=== PATIENT | female | born 1970 | race Caucasian/White ===

== ENCOUNTER 2016-11-30 18:12 | Observation (INO) ==
[2016-11-30] MEDS ORDERED: *HR* HYDROmorphone (PF) 1 MG/ML SYRINGE IVP ONE ×2 (19:08→20:30)
[2016-11-30] MEDS ORDERED: Ondansetron 4 MG/2 ML VIAL IVP ONE ×2 (19:08→20:30)
--- NOTE | 2016-11-30 19:11 | Emergency Department Note ---
Disposition Clinical Impression: Ureterolithiasis Disposition: Admitted As Inpatient Condition: Good Referrals: NO,PCP [Primary Care Provider] - Forms: Work/School Release, ED Satisfaction Letter Time of Disposition: 20:32 Abdominal Pain HPI - General Chief Complaint: ED Abdominal Pain Stated Complaint: flank pain Time Seen by Provider: 11/30/16 19:06 Source: patient Mode of arrival: ambulatory Limitations: no limitations Nursing Notes Reviewed: Yes Vital Signs Reviewed: Yes - History of Present Illness HPI Narrative: 46-year-old comes in with 24-hour history of left flank pain radiating around to her abdomen. Patient has had a kidney stone passes it feels similar to that. Pt Subjective Complaint: abdominal pain, flank pain Onset (ago): hour(s) Consistency: constant (24) Location: LLQ, L flank Pain Severity: severe Pain Scale: 10 Quality: stabbing, aching Radiation: LLQ Migration to: no migration Improves with: nothing Worsens with: nothing - Related Data Previous Rx's Medication Instructions Recorded Azithromycin [Azithromycin 6-Tab 250 mg PO PER PKG DI #6 tab 05/07/16 Pack] GuaiFENesin/Dextromethorphan [Kro 5 ml PO Q4-6H PRN #118 ml 05/07/16 Tussin Dm Max Liquid] Allergies Allergy/AdvReac Type Severity Reaction Status Date / Time No Known Allergies Allergy Verified 11/30/16 19:05 All systems ED: reviewed and negative except as stated. Constitutional: Denies: fever, chills, weakness, weight change Eyes: Denies: eye pain, eye discharge, vision change ENT ED: Denies: ear pain, throat pain, dental pain, hearing loss, epistaxis, congestion, dysphagia Cardiovascular: Denies: chest pain, palpitations, dyspnea on exertion, edema, syncope Respiratory: Denies: cough, dyspnea, wheezes, hemoptysis, stridor Gastrointestinal: Reports: abdominal pain. Denies: nausea, vomiting, diarrhea, constipation, hematemesis, melena, hematochezia Genitourinary: Denies: dysuria, frequency, hematuria, discharge Musculoskeletal: Reports: back pain. Denies: neck pain, arthralgia, myalgia Integumentary: Denies: rash, abrasion, lesions Neurological: Denies: headache, weakness, numbness, paresthesias, confusion, abnormal gait, vertigo Psychiatric: Denies: anxiety, depression, suicidal thoughts, homicidal thoughts , auditory hallucinations, visual hallucinations Endocrine: Denies: fatigue Hematological/Lymphatic: Denies: easy bleeding, easy bruising Allergic/Immunologic: Denies: facial swelling, urticaria Abdominal Pain PMH - Past Medical History Medical history: Reports: kidney stones Female Surgical History: Reports: other Psychiatric history: Reports: no psych history - Social History Smoking status: Never smoker Alcohol use: Reports: none Drug use: Reports: none Physical Exam - General Limitations: no limitations General appearance: alert, in no apparent distress - Head Head exam: atraumatic, normocephalic, normal inspection - Eye Eye exam: Present: normal appearance, PERRL, EOMI - ENT ENT exam: normal exam, normal oropharynx, mucous membranes moist - Neck Neck exam: Present: normal inspection, full ROM, trachea midline - Chest Chest inspection: Present: normal inspection, symmetric chest wall rise - Respiratory Respiratory exam: Present: normal lung sounds bilaterally - Cardiovascular Cardiovascular exam: Present: regular rate, normal rhythm, normal heart sounds - Abdominal Exam Abdominal exam: Present: soft, Non-Tender. Absent: tenderness, distention, guarding, rebound, rigidity - Extremities Exam Extremities exam: Present: normal inspection, full ROM. Absent: tenderness, pedal edema - Expanded Lower Extremity Exam Neurovascular/Tendon exam: Absent: motor deficit, sensory deficit, tendon deficit - Back Exam Back exam: Present: normal inspection, full ROM. Absent: tenderness - Neurological Exam Neurological exam: Present: alert, oriented X3 - Psychiatric Psychiatric exam: Present: normal affect, normal mood - Skin Skin exam: Present: warm, dry, intact, normal color Course - Reevaluation(s) Reevaluation #1: 46-year-old female with history of previous kidney stones comes in complaining of flank pain. CT shows a 9 mm stone will admit. Time: 20:32 - Consultations Consultation #1: Discussed with Dr. Sterling who will accept the patient for admission Time: 20:31 Vital Signs Temperature 99.0 F 11/30/16 19:02 Pulse Rate 85 11/30/16 19:02 Respiratory Rate 20 11/30/16 19:02 Blood Pressure 189/129 11/30/16 19:02 O2 Sat by Pulse Oximetry 96 11/30/16 19:02 Temperature 99.0 F 11/30/16 19:02 Pulse Rate 77 11/30/16 19:55 Respiratory Rate 16 11/30/16 19:55 Blood Pressure 131/79 11/30/16 19:55 O2 Sat by Pulse Oximetry 97 11/30/16 19:55 Oxygen Delivery Oxygen Delivery Room Air Abdominal Pain - Lab Data Lab results reviewed: Yes I reviewed the patient's lab results. Result diagrams: 11/30/16 19:13 11/30/16 19:13 Lab Results 11/30/16 11/30/16 Range/Units 19:13 19:13 WBC 14.3 H (4.3-11.1) K/mcL RBC 5.60 H (3.82-4.97) M/mcL Hgb 15.4 (11.5-15.4) g/dL Hct 45.8 H (35.3-44.9) % MCV 81.8 L (83.0-100.0) fL MCH 27.5 L (28.0-33.3) pg MCHC 33.6 (31.6-35.5) g/dL RDW 13.6 (11.5-14.5) % Plt Count 283 (140-400) K/mcL MPV 9.6 (9.4-12.4) fL Immature Gran % 0.4 (0-4) % Seg Neutrophils % 84.4 % Lymphocytes % 8.5 % Monocytes % 6.3 % Eosinophils % 0.1 % Basophils % 0.3 % Neutrophils # 12.1 H (1.6-8.9) K/mcL Lymphocytes # 1.2 (0.6-4.6) K/mcL Monocytes # 0.9 (0.0-1.3) K/mcL Eosinophils # 0.0 (0.0-0.6) K/mcL Basophils # 0.1 (0.0-0.2) K/mcL Immature Plt Fraction 4.0 (1.1-6.1) % Sodium 138 (136-145) mEq/L Potassium 3.9 (3.5-4.5) mEq/L Chloride 104 (98-109) mEq/L Carbon Dioxide 19 (19-29) mEq/L BUN 17 (7-20) mg/dL Creatinine 1.50 H (0.57-1.11) mg/dL Est GFR ( Amer) 45 L (> 60) Est GFR (Non-Af Amer) 37 L (> 60) BUN/Creatinine Ratio 11 (6-26) Glucose 119 H (70-99) mg/dL Calculated Osmolality 289 (280-300) Calcium 10.1 (8.6-10.8) mg/dL Total Bilirubin 1.3 H (0.2-1.2) mg/dL Direct Bilirubin 0.3 (0.0-0.5) mg/dL Indirect Bilirubin 1.0 (0.0-1.2) mg/dL AST 26 (5-34) Units/L ALT 30 (0-55) Units/L Alkaline Phosphatase 82 (38-126) Units/L Serum Total Protein 8.3 (6.0-8.3) g/dL Albumin 4.3 (3.5-5.0) g/dL Globulin 4.0 H (2.4-3.5) g/dL Albumin/Globulin Ratio 1.1 (1.1-2.2) Amylase 55 (25-125) Units/L Lipase 36 (8-78) Units/L - Radiology Data Radiology results reviewed: Yes I reviewed the patient's radiology results. Abdomen/Pelvis CT 11/30/16 19:08 IMPRESSION: 9 mm left UPJ stone with significant left hydronephrosis. D/ / Milan Jeffrey MD / Milan Jeffrey MD Interpreting Provider: Milan Jeffrey MD
[2016-11-30 19:21] LABS: Basophils # 0.1 K/mcL (0.0-0.2); Basophils % 0.3 %; Eosinophils % 0.1 %; Hematocrit 45.8 % (35.3-44.9); Hemoglobin 15.4 g/dL (11.5-15.4); Immature Granulocytes % 0.4 % (0-4); Lymphocytes # 1.2 K/mcL (0.6-4.6); Lymphocytes % 8.5 %; Mean Corpuscular HGB Conc 33.6 g/dL (31.6-35.5); Mean Corpuscular Hemoglobin 27.5 pg (28.0-33.3); Mean Corpuscular Volume 81.8 fL (83.0-100.0); Mean Platelet Volume 9.6 fL (9.4-12.4); Monocytes # 0.9 K/mcL (0.0-1.3); Monocytes % 6.3 %; Neutrophils # 12.1 K/mcL (1.6-8.9); Platelet Count 283 K/mcL (140-400); Red Cell Distribution Width 13.6 % (11.5-14.5); Segmented Neutrophils % 84.4 %
[2016-11-30 19:35] LABS: Albumin 4.3 g/dL (3.5-5.0); Albumin/Globulin Ratio 1.1 (1.1-2.2); Bilirubin,Direct 0.3 mg/dL (0.0-0.5); Bilirubin,Total 1.3 mg/dL (0.2-1.2); Calcium 10.1 mg/dL (8.6-10.8); Potassium 3.9 mEq/L (3.5-4.5); Total Protein 8.3 g/dL (6.0-8.3)
[2016-11-30 20:51] LABS: Bilirubin,Urine Negative (Negative); Blood,Urine Moderate (Negative); Clarity,Urine Cloudy (Clear); Color,Urine Yellow (Yellow); Glucose,Urine (UA) Normal (Normal); Ketones,Urine 40 mg/dL (Negative); Leukocyte Esterase,Urine Negative (Negative); Nitrite,Urine Negative (Negative); Protein,Urine 100 mg/dL (Neg-Trace); Specific Gravity,Urine 1.025 (1.010-1.025); Urobilinogen,Urine Normal (Normal)
[2016-11-30 20:53] LABS: Bacteria,Urine Few per hpf (None-Few); Hyaline Casts,Urine None Seen per lpf (None-Few); Squamous Epithelial Cell,Urine Many per lpf (None-Few)
[2016-11-30 21:04] LABS: RBC,Urine 15-30 per hpf (0-3)
[2016-11-30] MEDS ORDERED: *HR* OxyCODONE/APAP 5/325 TABLET PO PRN (21:33)
[2016-11-30] MEDS ORDERED: Ondansetron 4 MG/2 ML VIAL IVP PRN (21:33)
[2016-11-30] MEDS ORDERED: *HR* Morphine 2 MG/ML SYRINGE IVP PRN (21:33)
[2016-11-30] MEDS ORDERED: Naloxone 0.4 MG/ML INJ IVP PRN (21:33)
[2016-11-30] MEDS ORDERED: *HR* Promethazine 25 MG/ML VIAL IVP PRN (21:33)
--- NOTE | 2016-11-30 21:41 | Urology History & Physical ---
Date of Encounter: 12/01/16 Time of Encounter: 07:10 Assessment and Plan (1) Ureteral stone with hydronephrosis Current Visit: Yes Status: Acute We'll proceed with ureteral stent placement. I do not feel comfortable attempting an in situ stone extraction because of the size of the stone and its proximal position (2) Acute renal insufficiency Current Visit: Yes Status: Acute Should improve with IV hydration and stent placement (3) Flank pain Current Visit: Yes Status: Acute Pain medication History of Present Illness Chief complaint: Flank pain HPI: Ms. Cole is a 46 year old female presents the emergency room. Severe pain. CT scan with a 9 mm left UPJ stone. + history of stones. No fever. Intractable pain did not allow discharge. Past Med Surg Social Fam HX - Past Medical History Medical history: kidney stones Psychiatric history: no psych history - Social History Smoking Status: Never smoker Smokeless Tobacco Status: No Alcohol use: none Drug use: none Medications and Allergies Lifitegrast [Xiidra] 1 drop OP BID 11/30/16 [History] Allergies No Known Allergies Allergy (Verified 11/30/16 19:05) Review of Systems - Constitutional no chills, no fever(s), no malaise - EENT Nose, mouth and throat: no dizziness - Cardiovascular no chest pain - Respiratory no cough - Gastrointestinal abdominal pain, nausea, vomiting - Genitourinary Genitourinary: flank pain - Musculoskeletal back pain - Integumentary no erythema - Neurological no confusion - Psychiatric no anxiety - Hematologic/Lymphatic no easy bleeding - Allergic/Immunologic no throat swelling Exam Initial Vital Signs Temp Pulse Resp BP Pulse Ox 99.0 F 85 20 189/129 96 11/30/16 19:02 11/30/16 19:02 11/30/16 19:02 11/30/16 19:02 11/30/16 19:02 - General physical appearance Present: well developed, no distress - Eyes Present: PERRL - ENT Present: normal nares - Neck Present: no masses - Respiratory Present: normal respiratory effort - Cardiovascular Cardiovascular exam IM: RRR - Integumentary Present: no rash - Neurologic Present: normal coordination. Absent: disoriented, confused - Musculoskeletal Present: normal gait Urology Results - Labs 11/30/16 19:13 11/30/16 19:13 Abnormal lab results WBC 14.3 K/mcL (4.3-11.1) H 11/30/16 19:13 RBC 5.60 M/mcL (3.82-4.97) H 11/30/16 19:13 Hct 45.8 % (35.3-44.9) H 11/30/16 19:13 MCV 81.8 fL (83.0-100.0) L 11/30/16 19:13 MCH 27.5 pg (28.0-33.3) L 11/30/16 19:13 Neutrophils # 12.1 K/mcL (1.6-8.9) H 11/30/16 19:13 Creatinine 1.50 mg/dL (0.57-1.11) H 11/30/16 19:13 Est GFR ( Amer) 45 (> 60) L 11/30/16 19:13 Est GFR (Non-Af Amer) 37 (> 60) L 11/30/16 19:13 Glucose 119 mg/dL (70-99) H 11/30/16 19:13 Total Bilirubin 1.3 mg/dL (0.2-1.2) H 11/30/16 19:13 Globulin 4.0 g/dL (2.4-3.5) H 11/30/16 19:13 Urine Clarity Cloudy (Clear) A 11/30/16 19:50 Urine Protein 100 mg/dL (Neg-Trace) H 11/30/16 19:50 Urine Ketones 40 mg/dL (Negative) H 11/30/16 19:50 Urine Blood Moderate (Negative) H 11/30/16 19:50 Urine Microscopic RBC 15-30 per hpf (0-3) H 11/30/16 19:50 Urine Microscopic WBC 5-15 per hpf (0-3) H 11/30/16 19:50 Ur Squamous Epith Cells Many per lpf (None-Few) H 11/30/16 19:50 Ur Culture Indicated? YES (NO) A 11/30/16 19:50 All other labs normal.
[2016-11-30] MEDS: 0.9 % Sodium Chloride 1,000 ML IVC SCH (23:12)
[2016-11-30] MEDS: *HR* HYDROmorphone (PF) 1 MG/ML SYRINGE IVP PRN (23:13)
[2016-12-01] MEDS: 0.9 % Sodium Chloride 1,000 ML IVC SCH ×2 (09:35→19:39)
[2016-12-01] MEDS ORDERED: Acetaminophen 325 MG TABLET PO PRN ×3 (10:27→20:02)
[2016-12-01] MEDS: *HR* HYDROmorphone (PF) 1 MG/ML SYRINGE IVP PRN (11:36)
[2016-12-01] MEDS ORDERED: hydrALAZINE 10 MG TABLET PO SCH (12:00)
--- NOTE | 2016-12-01 16:49 | Anesthesia Evaluation PreOp ---
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 9mm L-UPJ stones) Anesthesia History: No Prior Anesthetic Complications, Past Anesthesia ( Pediatric eye surgery/strabismus surgery, T&A (age 11), Knee surgery, Lipoma excision, D&C), Problems ("woke up in middle of T&A [age11] and had to be put into an O2 tent [Neg pressure Pulm Edema??]) Alcohol Use: none Drug use: none Medications and Allergies Lifitegrast [Xiidra] 1 drop OP BID 11/30/16 [History] Allergies No Known Allergies Allergy (Verified 11/30/16 19:05) - Meds/Allergy Pre-op Review Medications Reviewed: Yes Allergies Reviewed: Yes Beta Blockers on Current Med List: No Anesthesia Results - Labs 11/30/16 19:13 11/30/16 19:13 Laboratory Tests 11/30/16 12/01/16 12/01/16 19:13 12:01 14:50 Est GFR (Non-Af Amer) 37 L POC Glucose 109 H Urine Test Negative - Imaging EKG: image reviewed (71bpm SR, non-specific T-wave abnormality) Anesthesia Exam Vital Signs Temp Pulse Resp BP Pulse Ox 12/01/16 12:15 98.4 F 74 16 159/97 99 12/01/16 11:00 98.2 F 74 16 184/99 98 12/01/16 10:43 74 183/107 12/01/16 08:50 98.1 F 74 14 123/79 98 12/01/16 07:25 98 F 99 14 143/84 93 12/01/16 03:53 98.1 F 73 14 123/71 94 11/30/16 22:13 98.1 F 72 14 124/77 94 11/30/16 21:29 18 141/79 11/30/16 20:44 73 16 187/100 99 11/30/16 19:55 77 16 131/79 97 11/30/16 19:02 99.0 F 85 20 189/129 96 Intake and Output 12/01/16 12/01/16 12/01/16 07:59 15:59 23:59 Intake Total 1000 / 1000 100 / 100 Output Total 350 / 350 Balance 650 / 650 100 / 100 Intake: IV Fluids 1000 / 1000 100 / 100 0.9 % Sodium Chloride 1, 1000 / 1000 000 ML @ 125 mls/hr IVC . 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 LABORATORY ANALYST LOC: Oriented OIL LABORATORY ANALYST Motor: Normal RUE, Normal LUE, Normal RLE, Normal LLE, Normal Face OIL LABORATORY ANALYST Sensory: Normal: RUE, LUE, RLE, LLE, Face - Cardiac Rhythm: Regular Murmur: None - Pulmonary Breath Sounds: bilateral Clear Respiratory Effort: Symmetrical Anesthesia Assess/Plan ASA Score: 2 (CARLOS MANUEL, Kidney stones) Modified [place] Scale for Level of Consciousness: Cooperative, oriented, and tranquil Anesthetic Plan: General Monitoring Plan: Standard Monitors Recovery Plan: PACU Anes Supervising Prov Stmt: Pt seen/evaluated, R&B Discussed, questions answered and consent obtained. Libia Mancuso MD
[2016-12-01] MEDS ORDERED: *HR* Propofol 200 MG/20 ML VIAL IVP ONE (17:20)
[2016-12-01] MEDS ORDERED: Dexamethasone 4 MG/ML VIAL ONE (17:21)
[2016-12-01] MEDS ORDERED: Lidocaine -MPF 2% 2 ML VIAL ONE (17:21)
[2016-12-01] MEDS ORDERED: Ondansetron 4 MG/2 ML VIAL ONE (17:21)
[2016-12-01] MEDS ORDERED: *HR* FentaNYL (PF) 100 MCG/2 ML VIAL ONE (17:21)
[2016-12-01] MEDS ORDERED: *HR* Midazolam HCl 2 MG/2 ML VIAL ONE (17:24)
[2016-12-01] MEDS ORDERED: Metoclopramide 10 MG/2 ML VIAL ONE (17:41)
[2016-12-01] MEDS ORDERED: Acetaminophen IV 1,000 MG/100 ML INFUS..BTL ONE (17:41)
[2016-12-01] MEDS ORDERED: Famotidine 20 MG/2 ML VIAL ONE (17:41)
[2016-12-01] MEDS ORDERED: cloNIDine HCl 0.1 MG TABLET ONE (17:45)
--- NOTE | 2016-12-01 17:48 | Discharge Summary ---
Date of Encounter: 12/01/16 Time of Encounter: 17:45 - Discharge Diagnosis (1) Ureteral stone with hydronephrosis Priority: Primary Status: Resolved (2) Acute renal insufficiency Priority: Secondary Status: Acute (3) Flank pain Priority: Secondary Status: Resolved - Discharge Medications Prescriptions: OxyCODONE/APAP 5/325 [Percocet 5/325 MG] 1 each PO Q4HR PRN #20 tablet PRN Reason: Pain Phenazopyridine HCl [Pyridium] 200 mg PO TIDAC PRN #30 tab PRN Reason: burning with urination Home Medications: Lifitegrast [Xiidra] 1 drop OP BID 11/30/16 [History] OxyCODONE/APAP 5/325 [Percocet 5/325 MG] 1 each PO Q4HR PRN #20 tablet 12/01/16 [Rx] Phenazopyridine HCl [Pyridium] 200 mg PO TIDAC PRN #30 tab 12/01/16 [Rx] Allergies/Adverse Reactions: Allergies No Known Allergies Allergy (Verified 11/30/16 19:05) Labs on day of discharge: Labs from last 24 hours 12/01/16 12/01/16 12/01/16 14:50 12:01 05:47 POC Glucose 109 H 94 H Urine Test Negative Date of admission: 11/30/16 20:55 Primary care physician: PCP NO Discharging clinician: Yuan Sterling Anticipated date of discharge: 12/01/16 - Patient Status Disposition: Home, Self-Care Condition: Good Functional capacity at discharge: independent ambulation Overall status at discharge: patient is progressing back to baseline - Discharge Instructions Follow Up With: Maya Duckworth MD [Partnered Physician] - 01/06/17 8:20 am Yuan Sterling MD [Partnered Physician] - (my office will call with ESWL date. ) Additional Instructions: expect stent discomfort including urgency, frequency, burning and blood in the urine. THIS IS NORMAL. call if symptoms excessive or fever over 101. - Diet and Activity Activity: increase activity as tolerated Diet: advance to your usual diet - Hospital Course Hospital course: Ms. Cole is a 46 year old female admitted with an obstructing ureteral stone. stent placed. planed discharge when pain controlled. will need followup for ESWL - Time Spent with Patient Total time spent providing and/or coordinating discharge services: Less than 30 minutes Exam Initial Vital Signs Temp Pulse Resp BP Pulse Ox 99.0 F 85 20 189/129 96 11/30/16 19:02 11/30/16 19:02 11/30/16 19:02 11/30/16 19:02 11/30/16 19:02 - General physical appearance Present: well developed, no distress
--- NOTE | 2016-12-01 17:51 | Operative Note ---
Date of procedure: 12/01/16 Pre-op diagnosis: left ureteral stone Post-op diagnosis: same Procedure: cystoscopy. left retrograde pyelogram. left JJ stent placement. Anesthesia: GETA Surgeon: Yuan Sterling Estimated blood loss (cc): 0 Specimen: none Condition: stable Disposition: PACU Procedure in Detail: PROCEDURE IN DETAIL: Patient was taken back to the operating room, positioned supine on the operating table. Anesthesia was applied without complication. They were moved into dorsal lithotomy. Careful attention was maintained to cushion all pressure points for patient's safety. They were prepped and draped in sterile fashion. Time-out was performed with the proper patient and procedure. A 21-Welsh rigid cystoscope was inserted into the bladder without difficulty. Systematic examination of bladder revealed no abnormalities. The ureteral orifice was cannulated using a 5-Welsh ureteral Catheter and a retrograde pyelogram was performed using Isovue. A filling defect was identified which corresponded to the stone. At that point, a zip wire was placed through the 5-Welsh and confirmed in the renal pelvis with fluoroscopy. A 4.8 x 26 ureteral stent was placed over the zip wire under fluoroscopy without complication. The bladder was drained.
[2016-12-01] MEDS ORDERED: *HR* Promethazine 25 MG/ML VIAL IVP PRN ×2 (18:31→20:02)
[2016-12-01] MEDS ORDERED: *HR* HYDROmorphone (PF) 1 MG/ML SYRINGE IVP PRN ×2 (18:31→20:02)
--- NOTE | 2016-12-01 19:09 | Anesthesia Evaluation Post Op ---
Date of Encounter: 12/01/16 Time of Encounter: 19:08 - Vital Signs Vital Signs: Vital Signs/O2 Sat/Glucose, Most Current Temp Pulse Resp BP Pulse Ox 12/01/16 19:02 99.0 F 77 16 146/94 99 12/01/16 18:52 76 16 143/86 97 12/01/16 18:42 67 16 128/82 100 12/01/16 18:32 98.5 F 71 14 124/79 98 - Lungs Lungs: Clear Ascult./Percussion - Airway Airway: Non-obstructed - Cardiovascular Regular Rate - Mental Status Mental Status: Alert & Oriented, Answers Appropriately - Pain Pain Scale: 2 - Nausea Vomiting Nausea Vomiting: Not Present - Hydration Hydration: Ice chips - Discharge PostOp Status: Transfer Patient to floor
[2016-12-01] MEDS ORDERED: *HR* OxyCODONE/APAP 5/325 TABLET PO PRN (20:02)
[2016-12-01] MEDS ORDERED: Naloxone 0.4 MG/ML INJ IVP PRN (20:02)
[2016-12-01] MEDS ORDERED: Ondansetron 4 MG/2 ML VIAL IVP PRN (20:02)
[2016-12-01] MEDS ORDERED: 0.9 % Sodium Chloride 1,000 ML IVC SCH (20:02)
[2016-12-01] MEDS ORDERED: *HR* Morphine 2 MG/ML SYRINGE IVP PRN (20:02)
[2016-12-01] MEDS ORDERED: *HR* Belladonna Alkaloids/Opium 60 MG RECTAL SUPPOSITORY RC PRN (20:02)
[2016-12-01 21:33] VITALS: BP 162/95
[2016-12-02] MEDS ORDERED: hydrALAZINE 10 MG TABLET PO SCH
--- NOTE | 2016-12-02 07:00 | Electrocardiograph Report ---
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
--- NOTE | 2016-12-02 07:01 | Electrocardiograph Report ---
[place] [id number] Test Date: 2016-12-01 Pat Name: Margarita Cole Department: 115 Room: 3A Gender: Willow Analyst: LUPILLO : 1970 Requested By: Yuan Sterling Order Number: [id number] Reading MD: Narciso Gore MD Measurements Intervals [place] Rate: 71 P: 9 CA: 132 QRS: -2 QRSD: 87 T: -6 QT: 391 QTc: 414 Interpretive Statements SINUS RHYTHM POSSIBLE LVH NONSPECIFIC T-WAVE ABNORMALITY Electronically Signed On 12-02-2016 7:00:09 EDT by Narciso Gore MD
== END 2016-12-01 23:20 | disposition home or self-care (01) ==
LOC: 3ANU 18:12 → EMEROO 18:12 → 3ANU 21:35
PROVIDERS: ADMIT Urology; ATTEND Urology